=== PATIENT | male | born 1975 | race Caucasian/White ===

== ENCOUNTER 2022-02-05 03:02 | Emergency (ER) | payer SELFPAY ==
[2022-02-05] MEDS ORDERED: Succinylcholine 200 MG/10 ml SYRINGE FS ONE (03:08)
[2022-02-05] MEDS ORDERED: Atropine Sulfate 1 mg/10 ml Syringe ONE (03:08)
[2022-02-05] MEDS ORDERED: Calcium Chloride 1 GM/10 ML Abboject SYRINGE ONE (03:08)
[2022-02-05] MEDS ORDERED: Sodium Bicarb 50 MEQ/50 ML Abboject 8.4% SYRINGE ONE (03:08)
[2022-02-05] MEDS ORDERED: Amiodarone 150 MG/3 ML VIAL ONE (03:08)
[2022-02-05] MEDS ORDERED: EPINEPHrine 1 MG/10 ML Abboject SYRINGE ONE (03:08)
[2022-02-05 04:43] LABS: CKMB 2.1 ng/mL (0-6.6)
== END 2022-02-05 03:53 | disposition expired ==
LOC: ERS 03:02
DX: I46.9 Cardiac arrest, cause unspecified (principal); I50.9 Heart failure, unspecified; J81.1 Chronic pulmonary edema
CPT/HCPCS: 31500; 71045; 82553; 83605; 84484; 92950; 93005; 96374; 96375; 96376; J0171; J0282; J0461